=== PATIENT | male | born 1955 | race Caucasian/White ===

== ENCOUNTER 2017-04-07 13:03 | Emergency (ER) | payer OTHER ==
[~2017-04-07] VITALS: Ht 165.1 cm; Wt 57.1 kg
[2017-04-07 14:06] LABS: MCH 37.1 PG (29.0-34.0); MCHC 35.8 G/DL (30.0-36.0); MCV 103.4 FL (86-99); MEAN PLAT.VOLUME 10.1 uM^3 (9.0-12.4); PLATELET COUNT 244 K/uL (156-360); RBC DIS.WIDTH-CV 14.2 % (11.8-14.6); RBC DIS.WIDTH-SD 54.1 % (39-53); RED BLOOD COUNT 4.64 M/uL (4.00-5.50); WHITE BLOOD COUNT 9.4 K/uL (4.1-10.2)
[2017-04-07 14:18] LABS: CHLORIDE 91 mEq/L (99-109); POTASSIUM 4.4 mEq/L (3.7-5.4); SODIUM 132 mEq/L (136-147)
[2017-04-07 14:20] LABS: GLUCOSE 193 mg/dL (70-99)
[2017-04-07 14:22] LABS: ANION GAP 20 MEQ/L (2-14); TOTAL BILIRUBIN 0.5 mg/dL (0.0-1.0)
[2017-04-07 14:24] LABS: ALKALINE PHOSPHATASE 72 IU/L (3-129); GFR ESTIMATE (CALCULATED) > 59 mL/min/
[2017-04-07 14:25] LABS: UREA NITROGEN (BUN) 21 mg/dL (9-23)
[2017-04-07 14:27] LABS: LIPASE 23 U/L (1.0-51.0)
[2017-04-07 15:25] LABS: ADD MIUA? NO; BILIRUBIN NEGATIVE; BLOOD NEGATIVE; COLOR YELLOW ((YELLOW)); GLUCOSE (STRIP) 150; KETONES 80; LEUKOCYTES NEGATIVE; NITRITE NEGATIVE; PROTEIN (STRIP) 30; SPECIFIC GRAVITY 1.017 (1.000-1.030); UCUL ADDED? NO; UROBILINOGEN 0.2 MG/DL (0.2-1.0)
[2017-04-07 15:42] LABS: D-DIMER ELISA 1.19 mg/L FEU (< 0.57)
[2017-04-07] MEDS ORDERED: ZOFRAN ODT8 MG PO (20:35)
[2017-04-07] MEDS ORDERED: PRILOSEC20 MG PO (20:35)
[2017-04-07 20:55] VITALS: BP 139/89
== END 2017-04-07 20:56 | disposition home or self-care (01) ==
LOC: EME 13:03
DX: R11.2 Nausea with vomiting, unspecified (principal); K21.9 Gastro-esophageal reflux disease without esophagitis; K44.9 Diaphragmatic hernia without obstruction or gangrene; E86.0 Dehydration; J44.9 Chronic obstructive pulmonary disease, unspecified; R42 Dizziness and giddiness; I10 Essential (primary) hypertension; F32.9 Major depressive disorder, single episode, unspecified; F17.200 Nicotine dependence, unspecified, uncomplicated
CPT/HCPCS: 71275; 80053; 81003; 82010; 83690; 85027; 85379; 93005; 99281; 99285; J2405; J7030

== ENCOUNTER 2017-04-22 18:11 | Inpatient (IN) | payer OTHER ==
[~2017-04-22] VITALS: Ht 165.1 cm; Wt 54.3 kg
[~2017-04-22 18:11] MED LIST: PRILOSEC20 MG PO; ZOFRAN ODT8 MG PO
[2017-04-22 20:56] LABS: CHLORIDE 93 mEq/L (99-109); SODIUM 135 mEq/L (136-147)
[2017-04-22 20:58] LABS: GLUCOSE 121 mg/dL (70-99)
[2017-04-22 21:00] LABS: ANION GAP 31 MEQ/L (2-14); TOTAL BILIRUBIN 0.8 mg/dL (0.0-1.0)
[2017-04-22 21:02] LABS: ALKALINE PHOSPHATASE 59 IU/L (3-129); GFR ESTIMATE (CALCULATED) > 59 mL/min/
[2017-04-22 21:03] LABS: UREA NITROGEN (BUN) 18 mg/dL (9-23)
[2017-04-22 21:04] LABS: DIRECT BILIRUBIN 0.3 mg/dL (0.0-0.3)
[2017-04-22 21:05] LABS: LIPASE 425 U/L (1.0-51.0)
[2017-04-22 21:08] LABS: HEMATOCRIT 45.6 % (38.0-50.0); MCHC 35.5 G/DL (30.0-36.0); PLATELET COUNT 178 K/uL (156-360); RBC DIS.WIDTH-CV 14.3 % (11.8-14.6); RBC DIS.WIDTH-SD 56.8 % (39-53); RED BLOOD COUNT 4.26 M/uL (4.00-5.50); TROP-I INTERPRETATION NEGATIVE; TROPONIN-I 0.04 ng/mL (0.0-0.30); WHITE BLOOD COUNT 16.6 K/uL (4.1-10.2)
[2017-04-22] MEDS ORDERED: LISINOPRIL40 MG PO (21:28)
[2017-04-22] MEDS ORDERED: ONE-A-DAY ESSE1 EAC1 PO (21:29)
[2017-04-22] MEDS ORDERED: DEPRESSION MED PO (21:29)
[2017-04-22] MEDS ORDERED: LO-DOSE ASPIRIN81 M2 PO (21:29)
[2017-04-23] VITALS (7 sets, daily range): BP systolic 131–164; BP diastolic 81–106
[2017-04-23 03:18] LABS: HEMATOCRIT 44.8 % (38.0-50.0); MCH 37.5 PG (29.0-34.0); MCHC 36.4 G/DL (30.0-36.0); MEAN PLAT.VOLUME 10.4 uM^3 (9.0-12.4); PLATELET COUNT 146 K/uL (156-360); RBC DIS.WIDTH-CV 13.6 % (11.8-14.6); RBC DIS.WIDTH-SD 52.1 % (39-53); RED BLOOD COUNT 4.35 M/uL (4.00-5.50); WHITE BLOOD COUNT 15.5 K/uL (4.1-10.2)
[2017-04-23 03:26] LABS: CHLORIDE 95 mEq/L (99-109); POTASSIUM 3.7 mEq/L (3.7-5.4); SODIUM 132 mEq/L (136-147)
[2017-04-23 03:28] LABS: GLUCOSE 141 mg/dL (70-99)
[2017-04-23 03:29] LABS: ANION GAP 19 MEQ/L (2-14)
[2017-04-23 03:31] LABS: ALKALINE PHOSPHATASE 56 IU/L (3-129)
[2017-04-23 03:32] LABS: GFR ESTIMATE (CALCULATED) > 59 mL/min/
[2017-04-23 03:33] LABS: UREA NITROGEN (BUN) 15 mg/dL (9-23)
[2017-04-23 04:05] LABS: EOSINOPHIL (%) 0 % (0-5); HEMATOLOGY COMMENT 1 SMEAR COMPATIBLE; IMMATURE GRANULOCYTE (%) 0.6 % (0.0-0.7); IMMATURE GRANULOCYTE COUNT 0.1 K/uL; INSTRUMENT ABS NEUTROPHIL CT 14.3 K/uL; LYMPHOCYTE COUNT 0.4 K/uL (1.0-2.8); MONOCYTE (%) 3.9 % (3-12); MONOCYTE COUNT 0.6 K/uL (0-0.8); NEUTROPHIL (%) 92.6 % (45-76); NEUTROPHIL COUNT 14.3 K/uL (1.8-6.4)
[2017-04-23 10:05] LABS: LIPASE 643 U/L (1.0-51.0)
[2017-04-24] VITALS (7 sets, daily range): BP systolic 126–171; BP diastolic 83–102
[2017-04-24 06:34] LABS: HEMATOCRIT 40.6 % (38.0-50.0); MCH 38.2 PG (29.0-34.0); MCHC 37.4 G/DL (30.0-36.0); MEAN PLAT.VOLUME 11.4 uM^3 (9.0-12.4); PLATELET COUNT 107 K/uL (156-360); RBC DIS.WIDTH-CV 13.7 % (11.8-14.6); RED BLOOD COUNT 3.98 M/uL (4.00-5.50); WHITE BLOOD COUNT 17.5 K/uL (4.1-10.2)
[2017-04-24 08:11] LABS: ALKALINE PHOSPHATASE 56 IU/L (3-129); ANION GAP 17 MEQ/L (2-14); CHLORIDE 90 MEQ/L (99-109); DIRECT BILIRUBIN 0.3 mg/dL (0.0-0.3); GFR ESTIMATE (CALCULATED) > 59 mL/min/; SAMPLE HEMOLYSIS CHECK 0; SAMPLE ICTERIC CHECK 0; SAMPLE LIPEMIA CHECK 0; SODIUM 133 MEQ/L (136-147); TOTAL BILIRUBIN 1.2 MG/DL (0.0-1.0); UREA NITROGEN (BUN) 7 mg/dL (9-23)
[2017-04-24 08:13] LABS: GLUCOSE 61 mg/dL (70-99); POTASSIUM 2.8 MEQ/L (3.7-5.4)
[2017-04-24 09:00] LABS: MAGNESIUM 1.5 mg/dl (1.3-2.7)
[2017-04-25] VITALS: BP 159/100
[2017-04-25 06:06] LABS: HEMATOCRIT 36.8 % (38.0-50.0); MCH 38.5 PG (29.0-34.0); MCHC 37.2 G/DL (30.0-36.0); MCV 103.4 FL (86-99); MEAN PLAT.VOLUME 11.5 uM^3 (9.0-12.4); PLATELET COUNT 93 K/uL (156-360); RBC DIS.WIDTH-CV 14.1 % (11.8-14.6); RED BLOOD COUNT 3.56 M/uL (4.00-5.50); WHITE BLOOD COUNT 14.8 K/uL (4.1-10.2)
[2017-04-25 06:38] LABS: ALKALINE PHOSPHATASE 68 IU/L (3-129); ANION GAP 9 MEQ/L (2-14); CHLORIDE 95 MEQ/L (99-109); GFR ESTIMATE (CALCULATED) > 59 mL/min/; POTASSIUM 2.7 MEQ/L (3.7-5.4); SAMPLE HEMOLYSIS CHECK 0; SAMPLE ICTERIC CHECK 0; SAMPLE LIPEMIA CHECK 0; SODIUM 135 MEQ/L (136-147); TOTAL BILIRUBIN 1.2 MG/DL (0.0-1.0); UREA NITROGEN (BUN) 5 mg/dL (9-23)
[2017-04-25 06:42] LABS: GLUCOSE 102 mg/dL (70-99)
[2017-04-25 06:53] VITALS: BP 133/93
[2017-04-25 11:10] VITALS: BP 136/89
== END 2017-04-25 14:41 | disposition left against medical advice (07) | DRG 439 ==
LOC: EME 18:11 → EDOF 22:51 → 5EAST 22:51
PROVIDERS: Emergency Medicine; Hospitalist
DX: K85.20 Alcohol induced acute pancreatitis without necrosis or infection (principal); K70.10 Alcoholic hepatitis without ascites; J44.9 Chronic obstructive pulmonary disease, unspecified; I10 Essential (primary) hypertension; K21.9 Gastro-esophageal reflux disease without esophagitis; E83.51 Hypocalcemia; K70.9 Alcoholic liver disease, unspecified; R11.0 Nausea; F10.239 Alcohol dependence with withdrawal, unspecified; E87.6 Hypokalemia; E83.42 Hypomagnesemia; D72.829 Elevated white blood cell count, unspecified; R00.0 Tachycardia, unspecified; D69.6 Thrombocytopenia, unspecified; Z88.0 Allergy status to penicillin
CPT/HCPCS: 70450; 71020; 74176; 80048; 80053; 80076; 83690; 83735; 84100; 84484; 85025; 85027; 93005; 99202; 99281; 99285; J1170; J1650; J2060; J2405; J3010; J3411; J3475; J3480; J7030; J7120; S0028